=== PATIENT | female | born 1975 | race Asian ===

== ENCOUNTER 2017-01-02 09:08 | Emergency (ER) | payer OTHER ==
[~2017-01-02 09:08] MED LIST: PREV30CA11 PO; ZOFR8TAB4 SL
[2017-01-02 09:25] VITALS: BP 141/83; PULSE 95; RESP 18; TEMP 98.3; O2SAT 99
[2017-01-02 10:21] LABS: AUTOMATED NEUTROPHIL # 3.8 TH/MM3 (1.8-7.7); BASOPHIL % 0.7 % (0.0-2.0); EOSINOPHIL # 0.2 TH/MM3 (0-0.4); EOSINOPHIL % 2.9 % (0.0-4.0); HEMATOCRIT 43.4 % (35.0-46.0); HEMO FLAGS DIFF FINAL; LYMPH % 29.1 % (9.0-44.0); LYMPHOCYTE # 1.8 TH/MM3 (1.0-4.8); MEAN CELL VOLUME 92.5 FL (80.0-100.0); MEAN CORPUSCULAR HEMOGLOBIN 30.1 PG (27.0-34.0); MEAN CORPUSCULAR HGB CONC 32.5 % (32.0-36.0); MONO % 7.3 % (0.0-8.0); PLATELET COUNT 252 TH/MM3 (150-450); RED BLOOD COUNT 4.69 MIL/MM3 (4.00-5.30); RED CELL DISTRIBUTION WIDTH 12.6 % (11.6-17.2); WHITE BLOOD COUNT 6.3 TH/MM3 (4.0-11.0)
[2017-01-02 10:37] LABS: BLOOD, URINE NEG (NEG); COMMENT (UR) CULT NOT INDICATED; CULTURE IF INDICATED CULT NOT INDICATED; GLUCOSE,URINE NEG (NEG); KETONE, URINE NEG (NEG); MUCUS URINE FEW /lpf (OCC); NITRITE,URINE NEG (NEG); SQUAMOUS EPITHELIAL CELL URINE <1 /hpf (0-5); URINE COLOR YELLOW (YELLW/STRAW)
[2017-01-02 10:41] LABS: ANION GAP 6 MEQ/L (5-15); BICARBONATE 25.1 MEQ/L (21.0-32.0); BLOOD UREA NITROGEN 12 MG/DL (7-18); CHLORIDE 107 MEQ/L (98-107); GLOMERULAR FILTRATION RATE 82 ML/MIN (>89); POTASSIUM 4.7 MEQ/L (3.5-5.1); SODIUM (NA) 138 MEQ/L (136-145)
--- NOTE | 2017-01-02 11:08 | PD ---
HPI Chief Complaint: Psychiatric Symptoms Time Seen by Provider: 10:03 Travel History International Travel<30 days: No Contact w/Intl Traveler<30days: No Traveled to known affect area: No History of Present Illness HPI Patient is a 41-year-old female presenting to emergency department for psychiatric evaluation under Agee act. Per the Agee act report patient was found in her bathroom with cord fuller on her wrist attempting to hang herself. Patient reported that she was depressed. A [employer] tool machine set up operator was utilized to perform examination. Patient reported to me that she does not feel suicidal, she had no history of suicide attempts in the past. Patient states that for the last 18 months her has been in school and she is alone most of the time. She doesn't have friends in the area. She denies any psychiatric history , she denies any past medical history otherwise. She has no physical complaints at this time. Furthermore patient denies any visual auditory hallucinations. PFSH Past Medical History Medical History: Denies Significant Hx Tetanus Vaccination: < 5 Years ?: Not Past Surgical History Surgical History: No Previous Surgery Social History Alcohol Use: No Tobacco Use: No Substance Use: No Allergies-Medications (Allergen,Severity, Reaction): Coded Allergies: No Known Allergies (Unverified , 01/02/17) Reported Meds & Prescriptions Reported Meds & Active Scripts Active Prevacid (Lansoprazole) 30 Mg Capdr 30 Mg PO DAILY Review of Systems Except as stated in HPI: all other systems reviewed are Neg Psychiatric: Positive: Depression, Suicidal Ideations Physical Exam Narrative GENERAL: Thin, well-developed, alert female. Resting comfortably in no acute distress. SKIN: Warm and dry. HEAD: Atraumatic. Normocephalic. EYES: Pupils equal and round. No scleral icterus. No injection or drainage. ENT: No nasal bleeding or discharge. Mucous membranes pink and moist. NECK: Trachea midline. No JVD. CARDIOVASCULAR: Regular rate and rhythm. RESPIRATORY: No accessory muscle use. Clear to auscultation. Breath sounds equal bilaterally. GASTROINTESTINAL: Abdomen soft, non-tender, nondistended. Hepatic and splenic margins not palpable. MUSCULOSKELETAL: Extremities without clubbing, cyanosis, or edema. No obvious deformities. NEUROLOGICAL: Awake and alert. No obvious cranial nerve deficits. Motor grossly within normal limits. Five out of 5 muscle strength in the arms and legs. Normal speech. PSYCHIATRIC: Appropriate mood and affect; insight and judgment normal. Data Data Last Documented VS Vital Signs Date Time Temp Pulse Resp B/P (MAP) Pulse Ox O2 Delivery O2 Flow Rate FiO2 01/02/17 09:25 98.3 95 18 141/83 (102) 99 Orders Orders Complete Blood Count With Diff (01/02/17 10:02) Comprehensive Metabolic Panel (01/02/17 10:02) Thyroid Stimulating Hormone (01/02/17 10:02) Urinalysis - C+S If Indicated (01/02/17 10:02) Psych Screen (01/02/17 10:02) Drug Screen, Random Urine (01/02/17 10:02) Alcohol (Ethanol) (01/02/17 10:02) Salicylates (Aspirin) (01/02/17 10:02) Tylenol (Acetaminophen) (01/02/17 10:02) Labs Laboratory Tests Test 01/02/17 09:50 01/02/17 10:02 White Blood Count 6.3 TH/MM3 Red Blood Count 4.69 MIL/MM3 Hemoglobin 14.1 GM/DL Hematocrit 43.4 % Mean Corpuscular Volume 92.5 FL Mean Corpuscular Hemoglobin 30.1 PG Mean Corpuscular Hemoglobin Concent 32.5 % Red Cell Distribution Width 12.6 % Platelet Count 252 TH/MM3 Mean Platelet Volume 7.2 FL Neutrophils (%) (Auto) 60.0 % Lymphocytes (%) (Auto) 29.1 % Monocytes (%) (Auto) 7.3 % Eosinophils (%) (Auto) 2.9 % Basophils (%) (Auto) 0.7 % Neutrophils # (Auto) 3.8 TH/MM3 Lymphocytes # (Auto) 1.8 TH/MM3 Monocytes # (Auto) 0.5 TH/MM3 Eosinophils # (Auto) 0.2 TH/MM3 Basophils # (Auto) 0.0 TH/MM3 CBC Comment DIFF FINAL Differential Comment Urine Color YELLOW Urine Turbidity CLEAR Urine pH 6.0 Urine Specific [place] 1.010 Urine Protein NEG mg/dL Urine Glucose (UA) NEG mg/dL Urine Ketones NEG mg/dL Urine Occult Blood NEG Urine Nitrite NEG Urine Bilirubin NEG Urine Urobilinogen LESS THAN 2.0 MG/DL Urine Leukocyte Esterase NEG Urine RBC 1 /hpf Urine WBC LESS THAN 1 /hpf Urine Squamous Epithelial Cells <1 /hpf Urine Mucus FEW /lpf Microscopic Urinalysis Comment CULT NOT INDICATED Blood Urea Nitrogen 12 MG/DL Creatinine 0.77 MG/DL Random Glucose 92 MG/DL Total Protein 8.0 GM/DL Albumin 4.0 GM/DL Calcium Level 8.8 MG/DL Alkaline Phosphatase 54 U/L Aspartate Amino Transf (AST/SGOT) 14 U/L Alanine Aminotransferase (ALT/SGPT) 15 U/L Total Bilirubin 0.5 MG/DL Sodium Level 138 MEQ/L Potassium Level 4.7 MEQ/L Chloride Level 107 MEQ/L Carbon Dioxide Level 25.1 MEQ/L Anion Gap 6 MEQ/L Estimat Glomerular Filtration Rate 82 ML/MIN Thyroid Stimulating Hormone 3rd Gen 0.655 uIU/ML Acetaminophen Level LESS THAN 2.0 MCG/ML Ethyl Alcohol Level LESS THAN 3 MG/DL Urine Opiates Screen NEG Urine Barbiturates Screen NEG Urine Amphetamines Screen NEG Urine Benzodiazepines Screen NEG Urine Cocaine Screen NEG Urine Cannabinoids Screen NEG MDM Medical Decision Making Medical Screen Exam Complete: Yes Emergency Medical Condition: Yes Interpretation(s) Vital Signs Date Time Temp Pulse Resp B/P (MAP) Pulse Ox O2 Delivery O2 Flow Rate FiO2 01/02/17 09:25 98.3 95 18 141/83 (102) 99 Differential Diagnosis Mood disorder versus depression versus suicidal ideations versus other Narrative Course Patient is a 41-year-old female presenting under Agee act for psychiatric evaluation secondary to suicidal ideations and depression. Patient's vital signs are stable. Mental health screening discussed with the patient. Psychiatric screen ordered. Psych evaluation process was explained to patient utilizing an tool machine set up operator, patient does speak broken Uzbek and appears to understand however the tool machine set up operator was used to prevent any miscommunication. Labs reviewed, no acute abnormalities identified. Patient is medically cleared for psychiatric evaluation at this time. Diagnosis Primary Impression: Medical clearance for psychiatric admission Condition: Stable Fay Ramirez Jan 02, 2017 10:42
[2017-01-02 11:15] LABS: ALKALINE PHOSPHATASE 54 U/L (45-117); ALT (GPT) 15 U/L (10-53); AST (GOT) 14 U/L (15-37); TOTAL BILIRUBIN ADULT 0.5 MG/DL (0.2-1.0)
[2017-01-02 11:34] LABS: ACETAMINOPHEN LESS THAN 2.0 MCG/ML (10.0-30.0); ALCOHOL LESS THAN 3 MG/DL (0-5)
[2017-01-02 13:57] VITALS: BP 112/64
[2017-01-02 14:08] VITALS: BP 157/90; PULSE 113; RESP 20; O2SAT 100
--- NOTE | 2017-01-02 15:35 | PD ---
History of Present Illness Chief Complaint: Psychiatric Symptoms Time Seen by Provider: 15:10 Travel History International Travel<30 Days: No Contact w/Intl Traveler<30days: No Known affected area: No Legal Status Legal Status: Agee Act Agee Act Signed By: Kenia Agee Act Comment: Officer Delvin History of Present Illness: History of Present Illness Patient is a 41-year-old female with no psychiatric history presenting to emergency department for psychiatric evaluation under Agee act initiated by . Per the Agee act report patient was found in her bathroom with cord fuller on her wrist attempting to hang herself. Patient reported that she was depressed. A [employer] fish cleaner was utilized to perform examination. Patient reported to me that she does not feel suicidal, she had no history of suicide attempts in the past. She denies any psychiatric history, she denies any past medical history otherwise. She has no physical complaints at this time. Furthermore patient denies any visual auditory hallucinations. Patient seen with Nurse Anthony. She refused to have fish cleaner and was able top communicate well with this policy writer. She is alert and oriented, calm and pleasant. her speech is clear and she answers question appropriately. There is no psychosis and no yana. She admits to feeling lonely since her is in school and she has been home. But she is excited because she will start ESL classes tomorrow. She is also excited because when her finishes his degree they will return home to [facility]. Denies hallucinations. No delusions and no paranoia. Denies suicdal or homicidal ideation. She doesn't have friends in the area. She tells me that she wanted to get her 's attention and is not going to hurt herself. States " I don't want my daughters to see me here and I love my and my daughters ". Sleeping well about 7 hours, eating well, some episodes of crying " Life is hard sometimes". PFSH Past Medical History Medical History: Denies Significant Hx Tetanus Vaccination: < 5 Years ?: Not Past Surgical History Surgical History: No Previous Surgery Psychiatric History Psychiatric History Hx Psychiatric Treatment: None reported History of Inpatient Treatment: No Guns or firearms in home: No Social History Born and raised in [facility]. 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 Hx Alcohol Use: No Hx Tobacco Use: No Hx Substance Use: No Hx of Substance Use Treatment: No Family Psychiatric History None reported Allergies-Medications (Allergen,Severity, Reaction): Coded Allergies: No Known Allergies (Unverified , 01/02/17) Reported Meds & Prescriptions Reported Meds & Active Scripts Active Prevacid (Lansoprazole) 30 Mg Capdr 30 Mg PO DAILY Review of Systems Except as stated in HPI: all other systems reviewed are Neg Exam Alert: Yes Jay Em: Person (ox4) Mood: Calm Affect: Appropriate Speech: Clear, Logical Eye Contact: Normal Memory Intact: Comment (no gross abnormality) Hallucinations: Other (denies any) Delusions: No Suicidal: Ideation (deneis any) Homicidal: Ideation (denies any) Insight/Judgement Fair. Not impaired. MDM Medical Decision Making Medical Record Reviewed: Yes Assessment/Plan Patient is a 41-year-old female presenting to emergency department for psychiatric evaluation under Agee act. Per the Agee act report patient was found in her bathroom with cord fuller on her wrist attempting to hang herself. Patient reported that she was depressed. Patient reported to me that she does not feel suicidal, she had no history of suicide attempts in the past Patient at this time is not psychotic, not manic. Not suicidal or homicidal. She does not meet Agee act criteria. Her has been contacted by staff for collateral and has no concerns for her safety. Has good protective measures and is future oriented. Agee act is lifted. Clear for discharge from psychiatry. Orders Orders Complete Blood Count With Diff (01/02/17 10:02) Comprehensive Metabolic Panel (01/02/17 10:02) Thyroid Stimulating Hormone (01/02/17 10:02) Urinalysis - C+S If Indicated (01/02/17 10:02) Psych Screen (01/02/17 10:02) Drug Screen, Random Urine (01/02/17 10:02) Alcohol (Ethanol) (01/02/17 10:02) Salicylates (Aspirin) (01/02/17 10:02) Tylenol (Acetaminophen) (01/02/17 10:02) Results Vital Signs Date Time Temp Pulse Resp B/P (MAP) Pulse Ox O2 Delivery O2 Flow Rate FiO2 01/02/17 14:08 113 20 157/90 (112) 100 Room Air 01/02/17 13:57 112/64 (80) 01/02/17 09:25 98.3 95 18 141/83 (102) 99 Laboratory Tests Test 01/02/17 09:50 01/02/17 10:02 White Blood Count 6.3 Red Blood Count 4.69 Hemoglobin 14.1 Hematocrit 43.4 Mean Corpuscular Volume 92.5 Mean Corpuscular Hemoglobin 30.1 Mean Corpuscular Hemoglobin Concent 32.5 Red Cell Distribution Width 12.6 Platelet Count 252 Mean Platelet Volume 7.2 Neutrophils (%) (Auto) 60.0 Lymphocytes (%) (Auto) 29.1 Monocytes (%) (Auto) 7.3 Eosinophils (%) (Auto) 2.9 Basophils (%) (Auto) 0.7 Neutrophils # (Auto) 3.8 Lymphocytes # (Auto) 1.8 Monocytes # (Auto) 0.5 Eosinophils # (Auto) 0.2 Basophils # (Auto) 0.0 CBC Comment DIFF FINAL Differential Comment Urine Color YELLOW Urine Turbidity CLEAR Urine pH 6.0 Urine Specific [place] 1.010 Urine Protein NEG Urine Glucose (UA) NEG Urine Ketones NEG Urine Occult Blood NEG Urine Nitrite NEG Urine Bilirubin NEG Urine Urobilinogen LESS THAN 2.0 Urine Leukocyte Esterase NEG Urine RBC 1 Urine WBC LESS THAN 1 Urine Squamous Epithelial Cells <1 Urine Mucus FEW Microscopic Urinalysis Comment CULT NOT INDICATED Blood Urea Nitrogen 12 Creatinine 0.77 Random Glucose 92 Total Protein 8.0 Albumin 4.0 Calcium Level 8.8 Alkaline Phosphatase 54 Aspartate Amino Transf (AST/SGOT) 14 Alanine Aminotransferase (ALT/SGPT) 15 Total Bilirubin 0.5 Sodium Level 138 Potassium Level 4.7 Chloride Level 107 Carbon Dioxide Level 25.1 Anion Gap 6 Estimat Glomerular Filtration Rate 82 Thyroid Stimulating Hormone 3rd Gen 0.655 Acetaminophen Level LESS THAN 2.0 Ethyl Alcohol Level LESS THAN 3 Urine Opiates Screen NEG Urine Barbiturates Screen NEG Urine Amphetamines Screen NEG Urine Benzodiazepines Screen NEG Urine Cocaine Screen NEG Urine Cannabinoids Screen NEG Diagnosis Primary Impression: Medical clearance for psychiatric admission Additional Impression: Adjustment disorder Psychiatrically Cleared: Yes Med/ Other Pt Specific Info: No Meds Exist/No RX given Disposition: 01 DISCHARGE HOME Condition: Stable Problem Qualifiers Additional Impression: Adjustment disorder Qualified Codes: F43.21 - Adjustment disorder with depressed mood Tracey Mcgarry Jan 02, 2017 15:35
--- NOTE | 2017-01-02 15:41 | PD ---
Physical Exam Date Seen by Provider: Jan 02, 2017 Time Seen by Provider: 15:38 Narrative For full history and physical examination please see previous note. Data Data Last Documented VS Vital Signs Date Time Temp Pulse Resp B/P (MAP) Pulse Ox O2 Delivery O2 Flow Rate FiO2 01/02/17 14:08 113 20 157/90 (112) 100 Room Air 01/02/17 09:25 98.3 Orders Orders Complete Blood Count With Diff (01/02/17 10:02) Comprehensive Metabolic Panel (01/02/17 10:02) Thyroid Stimulating Hormone (01/02/17 10:02) Urinalysis - C+S If Indicated (01/02/17 10:02) Psych Screen (01/02/17 10:02) Drug Screen, Random Urine (01/02/17 10:02) Alcohol (Ethanol) (01/02/17 10:02) Salicylates (Aspirin) (01/02/17 10:02) Tylenol (Acetaminophen) (01/02/17 10:02) Labs Laboratory Tests Test 01/02/17 09:50 01/02/17 10:02 White Blood Count 6.3 TH/MM3 Red Blood Count 4.69 MIL/MM3 Hemoglobin 14.1 GM/DL Hematocrit 43.4 % Mean Corpuscular Volume 92.5 FL Mean Corpuscular Hemoglobin 30.1 PG Mean Corpuscular Hemoglobin Concent 32.5 % Red Cell Distribution Width 12.6 % Platelet Count 252 TH/MM3 Mean Platelet Volume 7.2 FL Neutrophils (%) (Auto) 60.0 % Lymphocytes (%) (Auto) 29.1 % Monocytes (%) (Auto) 7.3 % Eosinophils (%) (Auto) 2.9 % Basophils (%) (Auto) 0.7 % Neutrophils # (Auto) 3.8 TH/MM3 Lymphocytes # (Auto) 1.8 TH/MM3 Monocytes # (Auto) 0.5 TH/MM3 Eosinophils # (Auto) 0.2 TH/MM3 Basophils # (Auto) 0.0 TH/MM3 CBC Comment DIFF FINAL Differential Comment Urine Color YELLOW Urine Turbidity CLEAR Urine pH 6.0 Urine Specific [place] 1.010 Urine Protein NEG mg/dL Urine Glucose (UA) NEG mg/dL Urine Ketones NEG mg/dL Urine Occult Blood NEG Urine Nitrite NEG Urine Bilirubin NEG Urine Urobilinogen LESS THAN 2.0 MG/DL Urine Leukocyte Esterase NEG Urine RBC 1 /hpf Urine WBC LESS THAN 1 /hpf Urine Squamous Epithelial Cells <1 /hpf Urine Mucus FEW /lpf Microscopic Urinalysis Comment CULT NOT INDICATED Blood Urea Nitrogen 12 MG/DL Creatinine 0.77 MG/DL Random Glucose 92 MG/DL Total Protein 8.0 GM/DL Albumin 4.0 GM/DL Calcium Level 8.8 MG/DL Alkaline Phosphatase 54 U/L Aspartate Amino Transf (AST/SGOT) 14 U/L Alanine Aminotransferase (ALT/SGPT) 15 U/L Total Bilirubin 0.5 MG/DL Sodium Level 138 MEQ/L Potassium Level 4.7 MEQ/L Chloride Level 107 MEQ/L Carbon Dioxide Level 25.1 MEQ/L Anion Gap 6 MEQ/L Estimat Glomerular Filtration Rate 82 ML/MIN Thyroid Stimulating Hormone 3rd Gen 0.655 uIU/ML Acetaminophen Level LESS THAN 2.0 MCG/ML Ethyl Alcohol Level LESS THAN 3 MG/DL Urine Opiates Screen NEG Urine Barbiturates Screen NEG Urine Amphetamines Screen NEG Urine Benzodiazepines Screen NEG Urine Cocaine Screen NEG Urine Cannabinoids Screen NEG MDM Medical Record Reviewed: Yes Supervised Visit with SHAQ: No Narrative Course Patient presented under Agee act for psychiatric evaluation secondary to making suicidal statements at home. Patient was seen and evaluated in the emergency department, medically cleared. Psychiatric nurse practitioner screened patient and Agee act was lifted. Patient will be discharged home. Diagnosis Primary Impression: Medical clearance for psychiatric admission Additional Impression: Adjustment disorder Qualified Codes: F43.20 - Adjustment disorder, unspecified Referrals: Primary Care Physician Patient Instructions: General Instructions Additional Instruction: Follow-up with the primary doctor Return to emergency department for any new or worsening symptoms Disposition: 01 DISCHARGE HOME Condition: Stable Fay Ramirez Jan 02, 2017 15:41
[2017-01-02 16:20] VITALS: BP 157/90; TEMP 98
== END 2017-01-02 16:25 | disposition home or self-care (01) ==
LOC: NEPD 09:08 → NEPJ 16:25
DX: F43.20 Adjustment disorder, unspecified (principal); Z79.899 Other long term (current) drug therapy
CPT/HCPCS: 80053; 80307; 81001; 84443; 85025; 99283